=== PATIENT | male | born 1960 | race Caucasian/White ===

== ENCOUNTER 2016-08-22 21:34 | Emergency (ER) | payer OTHER | END 2016-08-22 22:24 | disposition home or self-care (01) | DX: S67.01XA Crushing injury of right thumb, initial encounter (principal); W23.1XXA Caught, crushed, jammed, or pinched between stationary objects, initial encounter; Y92.007 Garden or yard of unspecified non-institutional (private) residence as the place of occurrence of the external cause ==

== ENCOUNTER 2019-07-24 06:30 | Day surgery (SDC) | payer OTHER ==
[~2019-07-24 06:30] MED LIST: LACTATED RINGERS 1,000 ML IV ONE
[2019-07-24] MEDS ORDERED: NEOSTIGMINE 1 MG/1 ML 10 ML MDV IVP ONE (06:31)
[2019-07-24] MEDS ORDERED: KETOROLAC 30 MG/ML VIAL IVP ONE (06:31)
[2019-07-24] MEDS ORDERED: MIDAZOLAM 2 MG/2 ML VIAL IVP ONE (06:31)
[2019-07-24] MEDS ORDERED: ONDANSETRON 4 MG/2 ML VIAL IVP ONE (06:31)
[2019-07-24] MEDS ORDERED: GLYCOPYRROLATE 1 MG/5 ML VIAL IVP ONE (06:31)
[2019-07-24] MEDS ORDERED: fentaNYL 100 MCG/2 ML VIAL IVP ONE (06:31)
[2019-07-24] MEDS ORDERED: cefTRIAXone 2 GM VIAL ONE (06:45)
[2019-07-24] MEDS ORDERED: EPINEPHrine 1 MG/ML AMP ONE (06:57)
[2019-07-24] MEDS ORDERED: BUPIVACAINE 0.25% PF 30 ML VIAL ONE (06:57)
--- NOTE | 2019-07-24 07:16 | ANESTHESIA ---
Pre-Anesthesia VS, & Labs - Diagnosis right shoulder RC tear - Procedure right shoulder rotator cuff repair, open biceps tenodesis Vital Signs: Temp Pulse Resp BP Pulse Ox 36.6 C 104 H 16 179/103 H 98 07/24/19 06:31 07/24/19 06:31 07/24/19 06:31 07/24/19 06:31 07/24/19 06:31 Height 5 ft 5 in Weight (kg) 86 kg Body Mass Index 27.4 - NPO >8 hours Home Medications and Allergies No Known Home Medications 08/22/16 see H and P Allergies/Adverse Reactions: Allergies Allergy/AdvReac Type Severity Reaction Status Date / Time Sulfa (Sulfonamide Allergy Unknown Verified 07/22/19 11:33 Antibiotics) Anes History & Medical History - Anesthetic History Anesthesia Complications: reports: No previous complications - Medical History Cardiovascular: reports: Hypertension, Other (right bundle branch block) Pulmonary: reports: None Gastrointestinal: reports: None Urinary: reports: None Musculoskeletal: reports: Other Endocrine/Autoimmune: reports: None Blood Disorders: reports: None Skin: reports: None Smoking Status: Former smoker - Surgical History Orthopedic: Hip replacement Exam General: Alert Dental: WNL Mouth Opening: Greater than 4 Fingerbreadths Mallampati classification: II Thyromental Distance: greater than 6 cm Respiratory: Lungs clear Cardiovascular: Other (3/6 murmur) Plan Anesthesia Type: General, Interscalene Block Consent for Procedure(s) Verified and Reviewed: Yes Code Status: Attempt Resuscitation ASA classification: 2-Mild systemic disease Is this case an emergency?: No
[2019-07-24] MEDS ORDERED: EPINEPHrine 1 MG/ML AMP IVP ONE (08:31)
[2019-07-24] MEDS ORDERED: EPINEPHrine 1 MG/ML AMP IR ONE (08:31)
[2019-07-24] MEDS ORDERED: BUPIVACAINE 0.25% PF 30 ML VIAL SUBQ ONE (08:34)
[2019-07-24] MEDS ORDERED: LACTATED RINGERS 1,000 ML IV ONE (08:36)
[2019-07-24] MEDS ORDERED: oxyCODONE 5 MG TABLET PO PRN (12:38)
[2019-07-24] MEDS ORDERED: ONDANSETRON 4 MG/2 ML VIAL IVP PRN (12:38)
--- NOTE | 2019-07-24 12:54 | OPERATIVE REPORT ---
Operative Report - Other Other Information/Narrative: Date of Surgery: 24 July 2019 Pre-Op Diagnosis: Acute, traumatic supraspinatus, infraspinatus, subscapularis, and biceps tendon tears Procedure: Right shoulder arthroscopy with subscapularis repair. Open biceps tenodesis. Open repair of supraspinatus and infraspinatus Postop Diagnosis: Same Primary Surgeon: Stef Mohamud Secondary Surgeon: Foreign Lawson Complications: None EBL: 50 IMPLANTS: Arthrex 5.5 mm corkscrew x4 Arthrex swivel lock x2 Arthrex fiber tack x1 POSTOPERATIVE PLAN: 0-2 weeks-Sling at all times. Pendulum exercises 5 times per day. 2-6 weeks-Passive range of motion. External rotation to neutral. Abduction to 90. Forward flexion to 90 with the palm down. No active flexion of the elbow. 6-16 weeks-Active and passive range of motion but no strengthening. 16 weeks and beyond-gradual strengthening of the rotator cuff EXAMINATION UNDER ANESTHESIA: ROM: Full Anterior load and shift: Normal Posterior load and shift: Normal Inferior sulcus: Normal ARTHROSCOPIC FINDINGS: Rotator interval: Disruption of the rotator cuff leading to abnormality of the interval Biceps tendon & SLAP: Partial tear of the biceps tendon that was longitudinal. Biceps tenodesis performed Subscapularis: Partial tear of the upper one half of the tendon, this was repaired Rotator Cuff: Complete tear of supraspinatus and infraspinatus with a longitudinal split between the 2. These were repaired HAGL: Normal Labrum: Mild degenerative change Glenoid Cartilage: Mild degenerative change Humeral Head Cartilage: Mild degenerative change INDICATION FOR SURGERY: 58-year-old male fell while skiing on 08 July and sustained a traumatic tear of the rotator cuff and subsequently had inability to lift his arms. MRI confirmed these findings. He was indicated for operative management urgently to allow for acute repair of these tendon avulsions and prevent them from becoming an ear repairable tear requiring shoulder arthroplasty. The risks, benefits, and alternatives were discussed. Risks included pain, bleeding, infection, damage to nearby structures, lack of symptom relief, implant complications, stiffness, need for further surgeries, DVT, PE, stroke, and even . He signed a written consent form. PROCEDURE IN DETAIL: The patient was met in the preoperative holding on the day of the procedure. Operative extremity was signed. Consent was verified. They desired to proceed. Regional anesthesia was obtained in the preoperative area. They were brought to the operating room and surrendered to anesthesia. Once general anesthesia was obtained they were placed in the lateral decubitus position with the operative side up. An axillary roll was placed and all bony prominences were well-padded. A surgical timeout was held to confirm the patient procedure, identity, procedure, laterality, allergies, images, and antibiotics. All were in agreement we proceeded. A standard diagnostic arthroscopy was performed utilizing posterior and anterosuperior portals. The anterosuperior portal was created under direct visualization and localized with a spinal needle. The 7 mm cannula was placed anteriorly. The findings of the diagnostic arthroscopy can be found above. The biceps tendon was taken from its insertion on the labrum. General debridement of the joint with a shaver and burner was done for visualization. I then performed the repair of the subscapularis. The rotator interval was opened with a shaver and burner and the backside of the coracoid was identified and cleared from underlying tissue. There was no subcoracoid impingement. A 3 sided release of the subscapularis was performed using an elevator. A [place] confirmed that the subscapularis could be reduced nicely without undue tension on the middle glenohumeral ligament. A mid glenoid portal was created with a good trajectory for subscapularis anchors. I then debrided to the insertion site and created a bed of bleeding bone. A single triple loaded anchor was then placed into the bone at the level of the upper one third of the tendon. I then used the crescent lasso to pass the suture in the appropriate locations creating an inferior horizontal mattress, and a superior horizontal mattress, and a cinch stitch over the superior border. After all sutures were passed I then tied from inferior to superior and noted the tendon reduced very nicely and was well fixed at its anatomic footprint. This was tested with a probe and final pictures were then taken. SUBACROMIAL DECOMPRESSION: The instruments and cannula were then removed from the glenohumeral joint. The scope trocar was placed in the posterior portal and the acromion was felt. It was then inserted just under the acromion scraping along the bone until the CA ligament was felt. The scope trocar was then brought just lateral to the CA ligament and out the anterior incision. The cannula was then brought over the scope trocar arthroscope were inserted. The arthroscope was backed up until the shaver and arthroscope in the subacromial space. I then systemically debrided the bursa using a sucker shaver and radiofrequency ablation wand. A direct lateral incision was made and the bursectomy and decompression was completed through the lateral incision. All soft tissue was debrided from the underside of the acromion and the posterior edge of the CA ligament was lifted. Care was taken to keep the deltoid fascia intact. I identified in the shape and pattern of the rotator cuff tear and found the supraspinatus to be completely off and the infraspinatus to be completely off. I freed up the tendon of the supraspinatus and infraspinatus and ensured that it could be reduced to its footprint. I then created a longitudinal incision laterally over the deltoid in line with the rotator cuff. I did not extend this incision beyond 5 cm from the acromial edge. A deltoid raphae was used and exploited and the sub-deltoid fascia was opened. The Derra retractor was used to debride the underside of the acromion and to finalize the mobilization of the cuff. I then released the subdeltoid fascia all the way up to the acromion and retractors were placed. The greater tuberosity was debrided of all soft tissue and abraded until it was a bed of bleeding bone. I then placed traction sutures in the infraspinatus and supraspinatus to ensure good mobility. I then planned my repair. I sequentially placed an anterior, central, and posterior medial row anchor ensuring to leave the bare area under the infraspinatus. I sequentially passed my sutures from anterior to posterior incorporating the comma tissue and supraspinatus into my first anchor, the supraspinatus and infraspinatus into the central anchor, and the infraspinatus in the posterior anchor. I then tied the medial row and found excellent compression and anatomic reduction. The marginal tear had reduced nicely and there was slight overlapping of the supraspinatus and infraspinatus. I then 1 suture from each not leaving me with 6 sutures for each lateral row anchor. The anterior lateral row anchor was put into place and each suture was tensioned individually then the anchor was fixed. I repeated this posteriorly. The repair was excellent and moved with the humeral head through a near full range of motion. MINI OPEN BICEPS TENODESIS: A 5 cm incision was made near the axillary fold centered over the pectoralis major tendon. Electrocautery was used to obtain hemostasis. The fascia was opened with dissection scissors. Blunt digital dissection was used to identify the intertubercular groove just under the pectoralis major tendon. The long head of the biceps tendon was visualized within this interval. The short head of the biceps was retracted with my finger and the right angle was used to deliver the tendon of the long head of the biceps out of the wound. A cardenas elevator was then used to debride all synovial tissue from the intertubercular groove. A fibertack was placed high within the groove. Both limbs of the fibertack were pulled on and it was well fixed. I then whipstitched the biceps tendon starting 2 cm proximal to the musculotendinous junction down to the musculotendinous junction and back up to the same 2 cm location with a single limb of the suture tack. The other suture was placed once through the tendon at the 2 cm location. I then cut all excess tendon off. The suture limb that was passed the single time was then pulled on and this reduced the tendon nicely into the groove. The elbow was fully straightened and there was no excess tension on the repair site. I then tied 7 reverse half hitches alternating to secure the tendon in its place. All wounds were then irrigated copiously. The portal sites were then closed with 3-0 Monocryl buried. Any open incisions were closed with 2-0 Vicryl in the dermis and a running 3-0 Monocryl in the skin. Mastisol and Steri-Strips were applied. A sterile dressing and a sling was applied. A sling was placed. The patient was awakened and transferred to the recovery room.
[2019-07-24 13:34] VITALS: BP 130/76
== END 2019-07-24 06:31 | disposition home or self-care (01) ==
LOC: SDS 06:30
PROVIDERS: ATTEND Orthopaedic Surgery
DX: S46.011A Strain of muscle(s) and tendon(s) of the rotator cuff of right shoulder, initial encounter (principal); S46.111A Strain of muscle, fascia and tendon of long head of biceps, right arm, initial encounter; M19.011 Primary osteoarthritis, right shoulder; I10 Essential (primary) hypertension; Z87.891 Personal history of nicotine dependence